=== PATIENT | male | born 1970 | race African-American/Black ===

== ENCOUNTER 2024-12-28 10:46 | Emergency (ER) | payer MEDICAID, OTHER ==
[~2024-12-28] VITALS: Ht 180.3 cm; Wt 72.0 kg
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
[2024-12-28 11:24] VITALS: BP 145/87; PULSE 85; RESP 18; TEMP 97; O2SAT 95
[2024-12-28] MEDS ORDERED: METH-1182 PO (11:24)
[2024-12-28] MEDS ORDERED: IBUP-1456 PO (11:24)
[2024-12-28] MEDS: ACETAMINOPHEN 500 MG TAB or CAP PO ONE (11:27)
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
== END 2024-12-28 11:44 | disposition home or self-care (01) ==
LOC: ER 10:46
DX: S16.1XXA Strain of muscle, fascia and tendon at neck level, initial encounter (principal); M50.30 Other cervical disc degeneration, unspecified cervical region; V89.2XXA Person injured in unspecified motor-vehicle accident, traffic, initial encounter; Y93.89 Activity, other specified; Y92.410 Unspecified street and highway as the place of occurrence of the external cause; Y99.8 Other external cause status
CPT/HCPCS: 72040